=== PATIENT | male | born 1955 | race Caucasian/White ===

== ENCOUNTER 2017-01-25 11:50 | Emergency (ER) | payer MEDICARE ==
--- NOTE | ~2017-01-25 | OP ---
Record Of Operation [facility] [address] [place]. [address] NAME: VANDANA REED HOMER : 55 STATUS : [facility] PAT#: [id number] AGE: 61 ADM/REG DATE : 01/25/17 MR#: [id number] REPORT SERV DATE: 01/26/17 DICTATED BY: CRUZ CROWDER DATE: 01/26/17 REPORT STATUS : Draft TRANSCRIBED BY: MODL DATE: 01/26/17 DATE OF PROCEDURE: 01/25/2017 PREOPERATIVE DIAGNOSIS: Acute appendicitis. 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 PROCEDURE: Laparoscopic appendectomy. DESCRIPTION OF OPERATIVE PROCEDURE: The patient was brought to operating suite, placed in supine position, underwent satisfactory general endotracheal anesthesia without incident. The skin of the abdomen was scrubbed, prepped, and draped in usual sterile fashion. 0.5% Marcaine with epinephrine was utilize as supplemental local anesthesia. Initially, an infraumbilical incision was performed, dissecting through the skin and subcutaneous tissue to the umbilical fascia. This was grasped with a Alcides clamp and elevated. A disposable Veress insufflation needle was inserted through the umbilical fascia into the peritoneal cavity. Intraperitoneal tip location was ascertained using the saline hanging drop method, following which CO2 was insufflated for pressures of 15 mmHg throughout the case. After adequate insufflation and pressure were achieved, the Veress needle was removed, and a bladed shielded 12 mm trocar was placed through the umbilical fascia in the peritoneal cavity, following which a rigid forward-viewing 10 mm laparoscope was inserted. Visualization of the intraabdominal parietes revealed no evidence of injury from initial insufflation or puncture. Two additional 5 mm trocars were placed under direct visualization, one in the suprapubic area, and one in the epigastrium, then the camera switched to the 5 mm epigastric site. The patient was placed in Trendelenburg position. Visualization of the ileocecum revealed an irritated appendix, but it appeared somewhat distended, and lobular, and I had the impression of a possible mucinous producing tumor. The appendix was grasped gently and elevated, so not to rupture it. An avascular window was created at the base of the appendix and the junction with the cecum across which was passed an Endo-LAWRENCE 45 linear stapler with GI load. This was closed and fired transecting the appendix. Additional firings of the vascular load of the same stapler were successful in dividing the mesoappendix. Endo retrieval pouch was inserted, the appendix was placed inside this and the drawstring tightened. Irrigation in the ileocecal area was successful and assuring hemostasis. Trocars were removed. CO2 was allowed to egress from peritoneal cavity. No muscular bleeding was noted. The Endo retrieval pouch was retrieved with some difficulty through the umbilicus, due to the bulbous nature of the appendix, the pouch was opened, and the appendix Record Of [place] [id number] [facility] [place]. [address] NAME: VANDANA REED HOMER : 55 STATUS : DEP ER PAT#: [id number] AGE: 61 ADM/REG DATE : 01/25/17 MR#: [id number] REPORT SERV DATE: 01/26/17 DICTATED BY: CRUZ CROWDER DATE: 01/26/17 REPORT STATUS : Draft TRANSCRIBED BY: LETICIA DATE: 01/26/17 had to be somewhat morcellated, there appeared to be a significant amount of mucin in the pouch, but none was spilled. The umbilicus was closed with [id number] suture of 0 Vicryl, subcutaneous tissue was closed with interrupted 4-0 Vicryl, running subcuticular stitch of 4-0 Vicryl for the skin. Dermabond and skin adhesive were placed. At the termination of procedure, sponge, needle, lap, and instrument counts were correct x3. ESTIMATED BLOOD LOSS: Less than 10 mL. WALT/LETICIA Cruz Crowder M.D. / [id number]
[~2017-01-25 11:50] MED LIST: BYETTA10 SC; CADUET5 MG/40 MG PO; FERROCITE OR; FORTAMET1000 MG PO; GLUCPH PO; HYZAAR 50/12.51 TAB PO; HYZAAR1 TAB PO; LIPITOR40 PO; NEXIUM40 PO; PERCOCET1 TA4 PO; WELLXL300 PO; Z300 PO; ZOL100 PO
[2017-01-25 12:52] LABS: BASOPHILS 0.1 %; BASOPHILS ABSOLUTE 0.01 10/3/uL (0.0-0.16); EOSINOPHILS 2.9 %; EOSINOPHILS ABSOLUTE 0.26 10/3/uL (0.0-0.53); ER CBC TAT 0 Hrs 05 Mins; HEMOGLOBIN 11.4 g/dL (13.6-17.8); IMMATURE GRANULOCYTES 0.2 %; IMMATURE GRANULOCYTES ABSOLUTE 0.02 10/3/uL (0.0-0.11); LYMPHOCYTES 19.4 %; LYMPHOCYTES ABSOLUTE 1.77 10/3/uL (0.67-4.30); MEAN CORPUSCULAR HEMOGLOB 23.3 pg (26.0-34.0); MEAN CORPUSCULAR VOLUME 77.6 fL (80-100); MEAN PLATELET VOLUME 9.9 fL (9.2-13.0); MONOCYTES 3.5 %; MONOCYTES ABSOLUTE 0.32 10/3/uL (0.21-1.20); NEUTROPHILS 73.9 %; NEUTROPHILS ABSOLUTE 6.73 10/3/uL (2.02-8.40); RBC DISTRIBUTION WIDTH 16.4 % (12.0-16.0); WHITE BLOOD CELLS 9.1 10/3/uL (4.5-10.5)
[2017-01-25 12:54] LABS: MANUAL DIFF NO %; PLATELET COUNT 307 10/3/uL (150-400)
[2017-01-25 13:07] LABS: A/G RATIO 0.9 (0.7-1.9); ALBUMIN 3.4 G/DL (3.5-5.0); ALKALINE PHOSPHATASE 110 U/L (45-117); BUN (BLOOD UREA NITROGEN) 10 MG/DL (6-23); CALCIUM, SERUM 9.1 MG/DL (8.5-10.4); CHLORIDE, SERUM 108 MMOL/L (96-112); CREATININE 0.85 MG/DL (0.70-1.30); GFR AFRICAN AMERICAN 109 ML/MIN (>=60); GFR NON AFRICAN AMERICAN 94 ML/MIN (>=60); POTASSIUM, SERUM 3.6 MMOL/L (3.5-5.3); SGOT(AST) 12 U/L (5-40); SGPT(ALT) 20 U/L (5-65); SODIUM, SERUM 143 MMOL/L (135-148); TOTAL BILIRUBIN 0.5 MG/DL (0-1.2); TOTAL PROTEIN 7.3 G/DL (6.0-8.5); TROPONIN I <0.02 NG/ML (<0.05)
[2017-01-25 13:09] LABS: CO2 (CARBON DIOXIDE) 28 MMOL/L (24-34); GLOBULIN 3.9 G/DL (2.5-4.1); GLUCOSE, SERUM 164 MG/DL (60-99)
[2017-01-25 13:16] LABS: ASCORBIC ACID (UR NOT ORDER) NEG (NEG); BILIRUBIN, URINE NEGATIVE (NEG); ER URINALYSIS TAT 0 Hrs 26 Mins; KETONE, URINE NEGATIVE (NEG); LEUKOCYTE ESTERASE(NOT OR NEG (NEG); NITRITE (URINE) NEG (NEG); WBC (NOT ORDERED) (RFLEX) 1 (0-5)
[2017-01-25] MEDS ORDERED: INSNOV7030 SC (15:01)
[2017-01-25] MEDS ORDERED: KLOR-CON M2020 MEQ PO (15:01)
[2017-01-25] MEDS ORDERED: GLUCOPHAGE1000 MG PO (15:02)
[2017-01-25] MEDS ORDERED: DIOVAN320 MG PO (15:02)
[2017-01-25] MEDS ORDERED: NEUR300 PO (15:02)
[2017-01-25] MEDS ORDERED: Z300 PO (15:03)
[2017-01-25] MEDS ORDERED: NEXIUM40 PO (15:03)
[2017-01-25] MEDS ORDERED: CYMBALTA30 PO (15:03)
[2017-01-25] MEDS ORDERED: LEVOTHYROXIN175 MCG PO ×2 (15:04)
[2017-01-25] MEDS ORDERED: PCET PO ×2 (15:05)
[2017-01-25] MEDS ORDERED: LIPITOR80 MG PO (15:05)
[2017-01-25] MEDS ORDERED: FLEX PO (15:06)
[2017-01-25] MEDS ORDERED: L40 PO (15:06)
[2017-01-25] MEDS ORDERED: NORV10 PO (15:06)
== END 2017-01-25 15:01 | disposition admitted as inpatient to this hospital (09) ==
LOC: ER 11:50
PROVIDERS: Physician Assistant; Specialist
PROC: 0DTJ4ZZ Resection of Appendix, Percutaneous Endoscopic Approach (ICD-10-PCS; principal; 2017-01-25 14:15)
DX: K37 Unspecified appendicitis (principal); I10 Essential (primary) hypertension; E66.9 Obesity, unspecified; E11.9 Type 2 diabetes mellitus without complications; Z87.442 Personal history of urinary calculi; Z88.6 Allergy status to analgesic agent; Z79.4 Long term (current) use of insulin; Z79.899 Other long term (current) drug therapy
CPT/HCPCS: 71020; 74176; 80053; 81001; 82962; 83690; 84484; 85025; 88304; 93005; 96374; 96375; 96376; 99285; J0330; J0690; J2250; J2370; J2405; J2543; J2710; J3010